=== PATIENT | female | born 1955 | race Caucasian/White ===

== ENCOUNTER → 2016-12-12 | Outpatient (CLI) | payer OTHER | LOC: FIMAGING 14:55 | PROVIDERS: ATTEND Physician Assistant | DX: Z12.31 Encounter for screening mammogram for malignant neoplasm of breast (principal) | CPT/HCPCS: G0202 ==

== ENCOUNTER 2017-01-12 14:19 | Emergency (ER) | payer OTHER ==
[2017-01-12] MEDS ORDERED: fentaNYL 100 MCG/2 ML INJ IVP ONE ×2 (14:34)
--- NOTE | 2017-01-12 14:49 | EDPHY ---
General - History Smoking Status: Never smoked Narrative: CHIEF COMPLAINT: Hip dislocation HISTORY OF PRESENT ILLNESS: Patient presents with left hip pain that she feels is dislocated. She was at the [employer] football game sitting on the bleachers, when she leaned back and felt the pain. Sudden onset of pain that she feels dislocated. Unable to bear weight on this. Radiates into the thigh. No numbness or tingling distally. No fall or trauma. No back pain. No incontinence. She is status post hip arthroplasty performed in October at [facility] by Dr. Kelley. No limitations prior to this injury. No other associated complaints or modifying factors. ESTABLISHED ORTHOPEDIST: Dr. 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 Lives in [place] FAMILY HISTORY: Noncontributory EXAMINATION General Appearance: Alert, no distress Cardiovascular: Pulses normal throughout. Symmetric DP and PT pulses 2+. Brisk cap refill Neurological: A&O, sensory symmetric, strength symmetric. No foot drop. Normal proprioception of the left great toe Skin: Warm and dry, no rash. No petechiae or purpura. No ecchymosis Extremities: Tenderness of the right hip. Range of motion not tested due to suspected dislocation range of motion of the left ankle fully intact Psychiatric: Mood and affect normal DIFFERENTIAL DIAGNOSES: Including but not limited to dislocation, fracture, fracture dislocation, sprain , strain, subluxation MDM: 2:35 p.m. Acute left hip pain with shortening or rotation. The patient is status post total hip arthroplasty and October 2016 at [facility] by Dr. Kelley. This an anterior approach. She is neurovascular intact distally. X-ray has been ordered. She is in no acute distress. IV has been placed. IV fentanyl as ordered. 2:48 p.m. X-ray as read by me reveals acute dislocation. No fracture of the hardware is apparent. Plan for procedural sedation with Dr. Byrnes and reduction of the hip. 3:15 p.m. Successful reduction without complication. Tolerated well. Post reduction film was difficult. During the placement of the digital film, she dislocated again. I applied traction and she easily reduced. X-ray showed both of this. At this time she is reduced, neurovascular intact. I will contact her orthopedic surgeon to discuss. 4:00 p.m. I discussed the case with the on-call orthopedist at [facility], Dr. Carroll. This was through the transfer center. He has agreed to accept the patient to the facility over the weekend. He has informed me that there will likely be no surgical intervention until Saturday. I discussed this with the patient and she is comfortable this. She is concerned about going home with fear of intolerable pain and recurring dislocation. EMTALA has been completed and we will arrange transport by ambulance [facility]. 4:15 p.m. Contacted again by [facility] transfer Center, Sharonda HERNANDEZ. The accepting orthopedist as requested that the patient be admitted to the hospitalist service. Hospitalist has agreed. I spoke with Dr. Puckett, he has agreed to admit the patient. Proceed with transfer. PROCEDURE: Closed reduction of hip Consent: Verbal Location: Left hip Anesthesia: Procedural sedation by Dr. Byrnes Procedure: After time-out and consent confirmed, the patient was administered procedural sedation by Dr. Byrnes. DP and PT pulses are symmetric pre procedure. After good sedation, the hip was placed in simple traction. The hip easily reduced without further manipulation. Good alignment with by visualization. DP and PT pulses remain intact postprocedure. Complications: None Post-reduction film: Hip subluxed again during placement of the digital film for the x-ray. I was able to apply traction and re-reduce the hip again. X- ray at this point reveals well-seated hip. ED Precautions: Worsening pain. Erythema, edema, cyanosis, pallor, paresthesia or anesthesia. (Adriel Cabello) - Diagnostics Imaging Results: Imaging Impressions Hip X-Ray 01/12/17 14:33 Impression: Dislocated left hip arthroplasty. Hip X-Ray 01/12/17 15:09 Impression: Interval reduction in dislocated left hip arthroplasty. Procedures: This patient was seen and examined by me. She presents with a left hip dislocation. Chest is clear to auscultation. Cardiovascular-regular rhythm and rate. Left lower extremity is shortened and externally rotated. X-ray reveals a hip dislocation. Procedure: Procedural sedation. Indication: Hip dislocation The patient is an appropriate candidate to tolerate procedural sedation. The patient's vitals signs and mental status are appropriate. The risks, benefits and alternatives of the sedation were discussed with the patient. The patient is ASA classification 1E. The patient's Mallampati airway score was 4 and the patient did meet the 3-3-2 airway measurements. A time out was completed. The patient was sedated with 80mg Propofol. The patient was monitored with continuous pulse oximetry, bus monitor and end tidal CO2. There were no complications and no significant hypoxemia. I performed the sedation and the Adriel Cabello performed the hip reduction. The total time I spent at the bedside during the procedural sedation was 15 minutes. The patient was examined after the procedural sedation and has returned to their pre-sedation baseline with normal vital signs and a normal examination. (Blanquita Byrnes) - Objective Vital Signs: Initial Vital Signs Temperature (C) 36.6 C 01/12/17 14:24 Heart Rate 125 H 01/12/17 14:24 Respiratory Rate 18 01/12/17 14:24 Blood Pressure 163/87 H 01/12/17 14:24 O2 Sat (%) 96 01/12/17 14:24 O2 Delivery Mode [Post Non-Rebreather Mask Procedure 1st] O2 Delivery Mode [Procedural Non-Rebreather Mask 1st] O2 Delivery Mode [.Immediate Non-Rebreather Mask Pre-Procedure Procedural 1st] O2 Delivery Mode [Procedural Non-Rebreather Mask 1st] O2 Delivery Mode Room Air O2 (L/minute) [Post Procedure 15 1st] O2 (L/minute) [Procedural 1st] 15 O2 (L/minute) [.Immediate Pre- 15 Procedure Procedural 1st] O2 (L/minute) [Procedural 1st] 15 O2 (L/minute) 2 Allergies/Adverse Reactions: cefuroxime axetil [From Ceftin] Allergy (Verified 04/22/14 11:12) Hives ibuprofen Allergy (Verified 04/21/14 10:31) levofloxacin Allergy (Verified 04/27/14 08:27) pantoprazole sodium [From Protonix] Allergy (Verified 04/21/14 10:31) Penicillins Allergy (Verified 04/22/14 11:12) Hives Surgical Tape Allergy (Uncoded 04/21/14 10:31) Home Medications: Medication Instructions Recorded Montelukast Sodium [Singulair 10 10 mg PO DAILY@1800 04/21/14 mg (*)] Ranitidine HCl [Zantac] 300 mg PO HS 04/21/14 Medications Given: Discontinued Medications Fentanyl (Sublimaze) 100 mcg IVP EDNOW ONE Stop: 01/12/17 14:35 Last Admin: 01/12/17 14:38 Dose: 100 mcg Fentanyl (Sublimaze) 100 mcg IVP EDNOW ONE Stop: 01/12/17 14:35 Last Admin: 01/12/17 15:12 Dose: Not Given Departure - Departure Disposition: [facility] Inpatient Acute Clinical Impression: Recurrent dislocation, 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
--- NOTE | 2017-01-12 14:49 | EDPHY ---
General - History Smoking Status: Never smoked Narrative: CHIEF COMPLAINT: Hip dislocation HISTORY OF PRESENT ILLNESS: Patient presents with left hip pain that she feels is dislocated. She was at the [employer] football game sitting on the bleachers, when she leaned back and felt the pain. Sudden onset of pain that she feels dislocated. Unable to bear weight on this. Radiates into the thigh. No numbness or tingling distally. No fall or trauma. No back pain. No incontinence. She is status post hip arthroplasty performed in October at [facility] by Dr. Kelley. No limitations prior to this injury. No other associated complaints or modifying factors. ESTABLISHED ORTHOPEDIST: Dr. 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 Lives in [place] FAMILY HISTORY: Noncontributory EXAMINATION General Appearance: Alert, no distress Cardiovascular: Pulses normal throughout. Symmetric DP and PT pulses 2+. Brisk cap refill Neurological: A&O, sensory symmetric, strength symmetric. No foot drop. Normal proprioception of the left great toe Skin: Warm and dry, no rash. No petechiae or purpura. No ecchymosis Extremities: Tenderness of the right hip. Range of motion not tested due to suspected dislocation range of motion of the left ankle fully intact Psychiatric: Mood and affect normal DIFFERENTIAL DIAGNOSES: Including but not limited to dislocation, fracture, fracture dislocation, sprain , strain, subluxation MDM: 2:35 p.m. Acute left hip pain with shortening or rotation. The patient is status post total hip arthroplasty and October 2016 at [facility] by Dr. Kelley. This an anterior approach. She is neurovascular intact distally. X-ray has been ordered. She is in no acute distress. IV has been placed. IV fentanyl as ordered. 2:48 p.m. X-ray as read by me reveals acute dislocation. No fracture of the hardware is apparent. Plan for procedural sedation with Dr. Byrnes and reduction of the hip. 3:15 p.m. Successful reduction without complication. Tolerated well. Post reduction film was difficult. During the placement of the digital film, she dislocated again. I applied traction and she easily reduced. X-ray showed both of this. At this time she is reduced, neurovascular intact. I will contact her orthopedic surgeon to discuss. 4:00 p.m. I discussed the case with the on-call orthopedist at [facility], Dr. Carroll. This was through the transfer center. He has agreed to accept the patient to the facility over the weekend. He has informed me that there will likely be no surgical intervention until Saturday. I discussed this with the patient and she is comfortable this. She is concerned about going home with fear of intolerable pain and recurring dislocation. EMTALA has been completed and we will arrange transport by ambulance to [facility]. 4:15 p.m. Contacted again by [facility] transfer Center, Sharonda HERNANDEZ. The accepting orthopedist as requested that the patient be admitted to the hospitalist service. Hospitalist has agreed. I spoke with Dr. Puckett, he has agreed to admit the patient. Proceed with transfer. PROCEDURE: Closed reduction of hip Consent: Verbal Location: Left hip Anesthesia: Procedural sedation by Dr. Byrnes Procedure: After time-out and consent confirmed, the patient was administered procedural sedation by Dr. Byrnes. DP and PT pulses are symmetric pre procedure. After good sedation, the hip was placed in simple traction. The hip easily reduced without further manipulation. Good alignment with by visualization. DP and PT pulses remain intact postprocedure. Complications: None Post-reduction film: Hip subluxed again during placement of the digital film for the x-ray. I was able to apply traction and re-reduce the hip again. X- ray at this point reveals well-seated hip. ED Precautions: Worsening pain. Erythema, edema, cyanosis, pallor, paresthesia or anesthesia. (Adriel Cabello) - Diagnostics Imaging Results: Imaging Impressions Hip X-Ray 01/12/17 14:33 Impression: Dislocated left hip arthroplasty. Hip X-Ray 01/12/17 15:09 Impression: Interval reduction in dislocated left hip arthroplasty. Procedures: This patient was seen and examined by me. She presents with a left hip dislocation. Chest is clear to auscultation. Cardiovascular-regular rhythm and rate. Left lower extremity is shortened and externally rotated. X-ray reveals a hip dislocation. Procedure: Procedural sedation. Indication: Hip dislocation The patient is an appropriate candidate to tolerate procedural sedation. The patient's vitals signs and mental status are appropriate. The risks, benefits and alternatives of the sedation were discussed with the patient. The patient is ASA classification 1E. The patient's Mallampati airway score was 4 and the patient did meet the 3-3-2 airway measurements. A time out was completed. The patient was sedated with 80mg Propofol. The patient was monitored with continuous pulse oximetry, full decator operator and end tidal CO2. There were no complications and no significant hypoxemia. I performed the sedation and the Adriel Cabello performed the hip reduction. The total time I spent at the bedside during the procedural sedation was 15 minutes. The patient was examined after the procedural sedation and has returned to their pre-sedation baseline with normal vital signs and a normal examination. (Blanquita Byrnes) - Objective Vital Signs: Initial Vital Signs Temperature (C) 36.6 C 01/12/17 14:24 Heart Rate 125 H 01/12/17 14:24 Respiratory Rate 18 01/12/17 14:24 Blood Pressure 163/87 H 01/12/17 14:24 O2 Sat (%) 96 01/12/17 14:24 O2 Delivery Mode [Post Non-Rebreather Mask Procedure 1st] O2 Delivery Mode [Procedural Non-Rebreather Mask 1st] O2 Delivery Mode [.Immediate Non-Rebreather Mask Pre-Procedure Procedural 1st] O2 Delivery Mode [Procedural Non-Rebreather Mask 1st] O2 Delivery Mode Room Air O2 (L/minute) [Post Procedure 15 1st] O2 (L/minute) [Procedural 1st] 15 O2 (L/minute) [.Immediate Pre- 15 Procedure Procedural 1st] O2 (L/minute) [Procedural 1st] 15 O2 (L/minute) 2 Allergies/Adverse Reactions: cefuroxime axetil [From Ceftin] Allergy (Verified 04/22/14 11:12) Hives ibuprofen Allergy (Verified 04/21/14 10:31) levofloxacin Allergy (Verified 04/27/14 08:27) pantoprazole sodium [From Protonix] Allergy (Verified 04/21/14 10:31) Penicillins Allergy (Verified 04/22/14 11:12) Hives Surgical Tape Allergy (Uncoded 04/21/14 10:31) Home Medications: Medication Instructions Recorded Montelukast Sodium [Singulair 10 10 mg PO DAILY@1800 04/21/14 mg (*)] Ranitidine HCl [Zantac] 300 mg PO HS 04/21/14 Medications Given: Discontinued Medications Fentanyl (Sublimaze) 100 mcg IVP EDNOW ONE Stop: 01/12/17 14:35 Last Admin: 01/12/17 14:38 Dose: 100 mcg Fentanyl (Sublimaze) 100 mcg IVP EDNOW ONE Stop: 01/12/17 14:35 Last Admin: 01/12/17 15:12 Dose: Not Given Departure - Departure Disposition: 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
--- NOTE | 2017-01-12 14:49 | EDPHY ---
General - History Smoking Status: Never smoked Narrative: CHIEF COMPLAINT: Hip dislocation HISTORY OF PRESENT ILLNESS: Patient presents with left hip pain that she feels is dislocated. She was at the [employer] football game sitting on the bleachers, when she leaned back and felt the pain. Sudden onset of pain that she feels dislocated. Unable to bear weight on this. Radiates into the thigh. No numbness or tingling distally. No fall or trauma. No back pain. No incontinence. She is status post hip arthroplasty performed in October at [facility] by Dr. Kelley. No limitations prior to this injury. No other associated complaints or modifying factors. ESTABLISHED ORTHOPEDIST: Dr. Kelley, 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 Symmetric DP and PT pulses 2+. Brisk cap refill Neurological: A&O, sensory symmetric, strength symmetric. No foot drop. Normal proprioception of the left great toe Skin: Warm and dry, no rash. No petechiae or purpura. No ecchymosis Extremities: Tenderness of the right hip. Range of motion not tested due to suspected dislocation range of motion of the left ankle fully intact Psychiatric: Mood and affect normal DIFFERENTIAL DIAGNOSES: Including but not limited to dislocation, fracture, fracture dislocation, sprain , strain, subluxation MDM: 2:35 p.m. Acute left hip pain with shortening or rotation. The patient is status post total hip arthroplasty and October [address] [facility] by Dr. Kelley. This an anterior approach. She is neurovascular intact distally. X-ray has been ordered. She is in no acute distress. IV has been placed. IV fentanyl as ordered. 2:48 p.m. X-ray as read by me reveals acute dislocation. No fracture of the hardware is apparent. Plan for procedural sedation with Dr. Byrnes and reduction of the hip. 3:15 p.m. Successful reduction without complication. Tolerated well. Post reduction film was difficult. During the placement of the digital film, she dislocated again. I applied traction and she easily reduced. X-ray showed both of this. At this time she is reduced, neurovascular intact. I will contact her orthopedic surgeon to discuss. 4:00 p.m. I discussed the case with the on-call orthopedist at [facility], Dr. Carroll. This was through the transfer center. He has agreed to accept the patient to the facility over the weekend. He has informed me that there will likely be no surgical intervention until Saturday. I discussed this with the patient and she is comfortable this. She is concerned about going home with fear of intolerable pain and recurring dislocation. EMTALA has been completed and we will arrange transport by ambulance to [facility]. 4:15 p.m. Contacted again by [facility] transfer Center, Sharonda HERNANDEZ. The accepting orthopedist as requested that the patient be admitted to the hospitalist service. Hospitalist has agreed. I spoke with Dr. Puckett, he has agreed to admit the patient. Proceed with transfer. PROCEDURE: Closed reduction of hip Consent: Verbal Location: Left hip Anesthesia: Procedural sedation by Dr. Byrnes Procedure: After time-out and consent confirmed, the patient was administered procedural sedation by Dr. Byrnes. DP and PT pulses are symmetric pre procedure. After good sedation, the hip was placed in simple traction. The hip easily reduced without further manipulation. Good alignment with by visualization. DP and PT pulses remain intact postprocedure. Complications: None Post-reduction film: Hip subluxed again during placement of the digital film for the x-ray. I was able to apply traction and re-reduce the hip again. X- ray at this point reveals well-seated hip. ED Precautions: Worsening pain. Erythema, edema, cyanosis, pallor, paresthesia or anesthesia. (Adriel Cabello) - Diagnostics Imaging Results: Imaging Impressions Hip X-Ray 01/12/17 14:33 Impression: Dislocated left hip arthroplasty. Hip X-Ray 01/12/17 15:09 Impression: Interval reduction in dislocated left hip arthroplasty. Procedures: This patient was seen and examined by me. She presents with a left hip dislocation. Chest is clear to auscultation. Cardiovascular-regular rhythm and rate. Left lower extremity is shortened and externally rotated. X-ray reveals a hip dislocation. Procedure: Procedural sedation. Indication: Hip dislocation The patient is an appropriate candidate to tolerate procedural sedation. The patient's vitals signs and mental status are appropriate. The risks, benefits and alternatives of the sedation were discussed with the patient. The patient is ASA classification 1E. The patient's Mallampati airway score was 4 and the patient did meet the 3-3-2 airway measurements. A time out was completed. The patient was sedated with 80mg Propofol. The patient was monitored with continuous pulse oximetry, front desk monitor and end tidal CO2. There were no complications and no significant hypoxemia. I performed the sedation and the Adriel Cabello performed the hip reduction. The total time I spent at the bedside during the procedural sedation was 15 minutes. The patient was examined after the procedural sedation and has returned to their pre-sedation baseline with normal vital signs and a normal examination. (Blanquita Byrnes) - Objective Vital Signs: Initial Vital Signs Temperature (C) 36.6 C 01/12/17 14:24 Heart Rate 125 H 01/12/17 14:24 Respiratory Rate 18 01/12/17 14:24 Blood Pressure 163/87 H 01/12/17 14:24 O2 Sat (%) 96 01/12/17 14:24 O2 Delivery Mode [Post Non-Rebreather Mask Procedure 1st] O2 Delivery Mode [Procedural Non-Rebreather Mask 1st] O2 Delivery Mode [.Immediate Non-Rebreather Mask Pre-Procedure Procedural 1st] O2 Delivery Mode [Procedural Non-Rebreather Mask 1st] O2 Delivery Mode Room Air O2 (L/minute) [Post Procedure 15 1st] O2 (L/minute) [Procedural 1st] 15 O2 (L/minute) [.Immediate Pre- 15 Procedure Procedural 1st] O2 (L/minute) [Procedural 1st] 15 O2 (L/minute) 2 Allergies/Adverse Reactions: cefuroxime axetil [From Ceftin] Allergy (Verified 04/22/14 11:12) Hives ibuprofen Allergy (Verified 04/21/14 10:31) levofloxacin Allergy (Verified 04/27/14 08:27) pantoprazole sodium [From Protonix] Allergy (Verified 04/21/14 10:31) Penicillins Allergy (Verified 04/22/14 11:12) Hives Surgical Tape Allergy (Uncoded 04/21/14 10:31) Home Medications: Medication Instructions Recorded Montelukast Sodium [Singulair 10 10 mg PO DAILY@1800 04/21/14 mg (*)] Ranitidine HCl [Zantac] 300 mg PO HS 04/21/14 Medications Given: Discontinued Medications Fentanyl (Sublimaze) 100 mcg IVP EDNOW ONE Stop: 01/12/17 14:35 Last Admin: 01/12/17 14:38 Dose: 100 mcg Fentanyl (Sublimaze) 100 mcg IVP EDNOW ONE Stop: 01/12/17 14:35 Last Admin: 01/12/17 15:12 Dose: Not Given Departure - Departure Disposition: [facility] Inpatient Acute Clinical Impression: Recurrent dislocation, 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
[2017-01-12] MEDS ORDERED: PROPOFOL 200 MG/20 ML VIAL ONE (14:51)
[2017-01-12 16:03] VITALS: RESP 18
[2017-01-12 16:32] VITALS: PULSE 78; TEMP 98.4
[2017-01-12 18:25] VITALS: BP 160/75; O2SAT 96
== END 2017-01-12 18:25 | disposition short-term general hospital (02) ==
LOC: EDUNIT#
PROC: 0SSBXZZ Reposition Left Hip Joint, External Approach (ICD-10-PCS; principal; 2017-01-12)
DX: T84.021A Dislocation of internal left hip prosthesis, initial encounter (principal)
CPT/HCPCS: 96374; J2704; J3010

== ENCOUNTER → 2017-03-28 | Outpatient (CLI) | payer OTHER | LOC: FIMAGING 15:12 | PROVIDERS: ATTEND Physician Assistant | DX: Z13.6 Encounter for screening for cardiovascular disorders (principal); R91.8 Other nonspecific abnormal finding of lung field; Z82.49 Family history of ischemic heart disease and other diseases of the circulatory system ==

== ENCOUNTER → 2017-06-07 | Outpatient (CLI) | payer OTHER | LOC: BMCIMAGING 15:03 | PROVIDERS: ATTEND Physician Assistant | DX: Z13.820 Encounter for screening for osteoporosis (principal); M85.89 Other specified disorders of bone density and structure, multiple sites; Z96.643 Presence of artificial hip joint, bilateral ==

== ENCOUNTER → 2017-12-13 | Outpatient (CLI) | payer OTHER | LOC: FIMAGING 15:11 | PROVIDERS: ATTEND Physician Assistant | DX: Z12.31 Encounter for screening mammogram for malignant neoplasm of breast (principal) ==

== ENCOUNTER → 2018-03-31 | Outpatient (CLI) | payer OTHER | LOC: FIMAGING 16:29 | PROVIDERS: ATTEND Physician Assistant | DX: J40 Bronchitis, not specified as acute or chronic (principal) ==

== ENCOUNTER → 2018-07-15 | Outpatient (CLI) | payer OTHER | LOC: FIMAGING 12:53 | PROVIDERS: ATTEND Physician Assistant | DX: J98.4 Other disorders of lung (principal) ==